=== PATIENT | female | born 1970 | race Caucasian/White ===

== ENCOUNTER 2016-09-10 14:39 | Emergency (ER) | payer OTHER ==
--- NOTE | 2016-09-10 15:36 | ED ORDER SUMMARY ---
..... Patient: KAITLIN SORENSEN OrderSheet [facility] VisitID: [id number] [address] [place] [address] 45y, F Registration Date/Time: 09/10/2016 ORDER SHEET Weight: 83.9 kg (stated) Allergies: Vicodin, Percocet GENERAL ORDERS: Culture, Strep Screen Urgent (15:08 09/10/2016 Luis Lopez.A.-C) (Ack 15:09 Trina) (15:13 LSullivan R.N.) MEDICATION ORDERS: Amoxicillin PO 500 mg (NOW) (15:34 09/10/2016 Luis Lopez.A.-C) (15:48 LSullivan R.N.) IV FLUIDS: ORDER SHEET NOTES: [Electronically signed by Marilou Arevalo P.A.-C (15:53 09/10/2016)] [Electronically signed by Sandra Grove R.N. (18:36 09/10/2016)] [Electronically locked/signed by Sandra Grove R.N. (18:36 09/10/2016)]
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
--- NOTE | 2016-09-10 15:36 | ED CLINICAL REPORT ---
Clinical Report - Physicians/Mid Levels [facility] [address] [place] [address] 09/10/2016 14:42 [id number] Time Seen: 15:09 Sep 10 2016. Arrived- By private vehicle. HISTORY OF PRESENT ILLNESS Chief Complaint: SORE THROAT. This started just prior to arrival and is still present. Pain described as mild. The patient has had a sore throat, jaw pain, facial pain and nasal congestion. No toothache or swollen face. (Patient reports cough, congestion facial pain over the last 3 days worsening, she has had chills. No sick contacts. No trauma. No headache. Does not have a thermometer at home. No hemoptysis. Denies any neck pain.). REVIEW OF SYSTEMS The patient has had fever. No cough, difficulty breathing, nausea, diarrhea or skin rash. No enlarged lymph nodes. All systems otherwise negative, except as recorded above. SOCIAL HISTORY Smoker- current status unknown. Alcohol use. No drug use. ADDITIONAL NOTES The nursing notes have been reviewed. PHYSICAL EXAM Vital Signs: 09/10/2016 14:52 BP: 109/54. HR: 99. RR: 18. O2 saturation: 98%. Temp: 98.6 F. Pain level now: 5/10. Appearance: Alert. Eyes: Conjunctivae and eyelids normal. ENT: Ears normal. Purulent nasal discharge present. Nose normal. Pharyngeal erythema. Lips normal. No trismus present. No mouth ulcerations or peritonsillar mass. (sinus tenderness). Neck: Trachea midline. No adenopathy. Thyroid normal. No thyromegaly or meningeal signs. CVS: Normal heart rate and rhythm. Heart sounds normal. Respiratory: No respiratory distress. Breath sounds normal. Abdomen: No organomegaly. Skin: No rash. LABS, X-RAYS, AND EKG Laboratory Tests: Culture, Strep Screen: (NAYAN: 09/10/2016 15:11) ( MsgRcvd 09/10/2016 15:34) Final results Test Result Flag Units (Reference) RAPID STREP SCREEN - THROAT CALLED TO: Marti MCGOWAN -- DATE: 09/10/16 POSITIVE SCREEN: RAPID STREP SCREEN: POSITIVE FOR GROUP A STREP . PROGRESS AND PROCEDURES Course of Care: Patient here there with a positive rapid strep. Patient in addition has sinus tenderness, we'll treat with amoxicillin. Patient stable. NO meningeal signs. 09/10/2016 14:52 BP: 109/54. HR: 99. RR: 18. O2 saturation: 98%. Temp: 98.6 F. Pain level now: 5/10. Patient is stable. Physical exam findings are improved. Symptoms better. Patient/family counseled. Differential Diagnosis: I considered viral pharyngitis, bacterial pharyngitis, palatine tonsillitis, thrush, aphthous stomatitis, allergic stomatitis, erythema multiforme, mononucleosis, sinusitis, foreign body and cardiac etiology as a possible cause of sore throat in this patient. This is a partial list of diagnoses considered. Disposition: Discharged. Condition: good. CLINICAL IMPRESSION Acute streptococcal pharyngitis INSTRUCTIONS Do not work for two days. Drink plenty of fluids. Prescription Medications: Tylenol with Codeine Tylenol #3 (30 mg / 300 mg) : take 1 tablet orally every 6 hours as needed for pain. No refill. Substitution is permissible. Amoxicillin 500 mg tablets: take 1 orally every 8 hours for 10 days. No refills. Ibuprofen 800 mg tablets: take 1 tablet orally every 8 hours for 3 days. Dispense ten (10). No refill. nicoderm patch: (21 mg/day) for 2 weeks. Follow-up: Follow up with your doctor in three days. Understanding of the discharge instructions verbalized by patient. (Electronically signed by Marilou Arevalo P.A.-C 09/10/2016 15:53)
--- NOTE | 2016-09-10 15:36 | ED ORDER SUMMARY ---
..... Patient: KAITLIN SORENSEN OrderSheet [facility] VisitID: [id number] [address] [place] [address] 45y, F Registration Date/Time: 09/10/2016 ORDER SHEET Weight: 83.9 kg (stated) Allergies: Vicodin, Percocet GENERAL ORDERS: Culture, Strep Screen Urgent (15:08 09/10/2016 Luis Lopez.A.-C) (Ack 15:09 Trina) (15:13 LSullivan R.N.) MEDICATION ORDERS: Amoxicillin PO 500 mg (NOW) (15:34 09/10/2016 Luis Lopez.A.-C) (15:48 LSullivan R.N.) IV FLUIDS: ORDER SHEET NOTES: [Electronically signed by Marilou Arevalo P.A.-C (15:53 09/10/2016)] [Electronically signed by Sandra Grove R.N. (18:36 09/10/2016)] [Electronically locked/signed by Sanrda Grove R.N. (18:36 09/10/2016)]
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
--- NOTE | 2016-09-10 18:36 | ED MED RECONCILIATION SUMMARY ---
Patient: KAITLIN SORENSEN Medication Reconciliation Report [facility] VisitID: [id number] [address] [place] [address] 45y, F Registration Date/Time: 09/10/2016 Weight: 83.9 kg Height/Length: 60 in. BMI: 36.1 ALLERGIES: Percocet, Vicodin The patient's Home Medications are listed below: THE FOLLOWING MEDICATIONS NEED TO BE RECONCILED: Ibuprofen The source(s) of the original Home Medication information: Not obtained. The following Medications were given to the patient in the Emergency Department: Amoxicillin [PO] PO 500 mg, administered: 09/10/2016 3:48:00 PM The following Medications were prescribed to the patient: Tylenol with Codeine Tylenol #3 (30 mg / 300 mg) : take 1 tablet orally every 6 hours as needed for pain. No refill. Substitution is permissible. -- Marilou Arevalo P.A.-Oscar Amoxicillin 500 mg tablets: take 1 orally every 8 hours for 10 days. No refills. -- Marilou Arevalo P.A.-Oscar nicoderm patch: (21 mg/day) for 2 weeks. -- Marilou Arevalo P.A.-Oscar Ibuprofen 800 mg tablets: take 1 tablet orally every 8 hours for 3 days. Dispense ten (10). No refill. -- Marilou Arevalo P.A.-C
--- NOTE | 2016-09-10 18:36 | ED MAR SUMMARY ---
..... Medication Administration Record [facility] [address] [place] [address] Patient: KAITLIN SORENSEN Visit ID: [id number] 45y, F Weight: 83.9 kg Height/Length: 60 in BMI: 36.1 ALLERGIES: Percocet, Vicodin Given 15:48 09/10/2016 Sandra Grove RBalwinderNBalwinder Medication Administered: AMOXICILLIN [PO], Dose: 500 mg PO. Medication Ordered: Amoxicillin PO 500 mg (NOW).
--- NOTE | 2016-09-10 18:36 | ED DISCHARGE INSTRUCTIONS ---
Patient: KAITLIN SORENSEN General Instructions [facility] VisitID: [id number] [place] [address] 45y, F Registration Date/Time: 09/10/2016 Acute streptococcal pharyngitis INSTRUCTIONS Do not work for two days. Drink plenty of fluids. Prescription Medications: Tylenol with Codeine Tylenol #3 (30 mg / 300 mg) : take 1 tablet orally every 6 hours as needed for pain. No refill. Substitution is permissible. Amoxicillin 500 mg tablets: take 1 orally every 8 hours for 10 days. No refills. Ibuprofen 800 mg tablets: take 1 tablet orally every 8 hours for 3 days. Dispense ten (10). No refill. nicoderm patch: (21 mg/day) for 2 weeks. Follow-up: Follow up with your doctor in three days. Understanding of the discharge instructions verbalized by patient. ADDITIONAL INFORMATION Pharyngitis: Strep [Confirmed] Your test for strep throat was positive. Strep throat is a contagious illness. It is spread by coughing, kissing or by touching others after touching your mouth or nose. Symptoms include throat pain which is worse with swallowing, aching all over, headache and fever. You will be treated with an antibiotic which should make you start to feel better within 1-2 days. Home Care: Rest at home and drink plenty of fluids to avoid dehydration. No school or work for the first two days on antibiotics. You will not be contagious after this time and if you are feeling better, you can return to school or work. Take your antibiotics for a full 10 days, even if you feel better after the first few days of treatment. This is very important to prevent heart or kidney disease that can result as a complication of untreated strep throat infection. Children: Use acetaminophen (Tylenol) for fever, fussiness or discomfort. In infants over six months of age, you may use ibuprofen (Children's Motrin) instead of Tylenol. [NOTE: If your child has chronic liver or kidney disease or ever had a stomach ulcer or GI bleeding, talk with your doctor before using these medicines.] (Aspirin should never be used in anyone under 18 years of age who is ill with a fever. It may cause severe liver damage.)Adults: You may use acetaminophen (Tylenol) or ibuprofen (Motrin, Advil) to control pain or fever, unless another medicine was prescribed for this. [NOTE: If you have chronic liver or kidney disease or ever had a stomach ulcer or GI bleeding, talk with your doctor before using these medicines.] Throat lozenges or sprays (Chloraseptic and others) will reduce pain. Gargling with warm salt water will also reduce throat pain. Dissolve 1/2 teaspoon of salt in 1 glass of warm water. This is especially useful just before meals. Follow Up with your doctor or as directed by our staff if you are not improving over the next week. Get Prompt Medical Attention if any of the following occur: Fever of 100.4F (38C) oral or higher, not better with fever medication New or worsening ear pain, sinus pain or headache Painful lumps in the back of your neck Unable to swallow liquids or open your mouth wide due to throat pain Trouble breathing or noisy breathing Muffled voice New rash Acetaminophen, Codeine Phosphate Oral tablet What is this medicine? ACETAMINOPHEN; CODEINE (a set a FELICIA dayron fen; KOE uday) is a pain reliever. It is used to treat mild to moderate pain. How should I use this medicine? Take this medicine by mouth with a full glass of water. Follow the directions on the prescription label. If the medicine upsets your stomach, take the medicine with food or milk. Do not take more medicine than you are told to take. Talk to your steam and gas turbine assembler regarding the use of this medicine in children. Special care may be needed. What side effects may I notice from receiving this medicine? Side effects that you should report to your doctor or health health care facilities inspector as soon as possible: allergic reactions like skin rash, itching or hives, swelling of the face, lips, or tongue breathing difficulties, wheezing confusion light headedness or fainting spells severe stomach pain yellowing of the skin or the whites of the eyes Side effects that usually do not require medical attention (report to your doctor or health health care facilities inspector if they continue or are bothersome): dizziness drowsiness nausea, vomiting What may interact with this medicine? alcohol antihistamines benztropine drugs for bladder problems like solifenacin, trospium, oxybutynin, tolterodine, hycosamine, and methscopolamine drugs for breathing problems like ipratropium and tiotropium drugs for certain stomach or intestine problems like propantheline, homatropine methylbromide, glycopyrrolate, atropine, belladonna, and dicyclomine medicines for depression, anxiety, or psychotic disturbances medicines for sleep muscle relaxants naltrexone narcotic medicines (opiates) for pain phenothiazines like perphenazine, thioridazine, chlorpromazine, mesoridazine, fluphenazine, prochlorperazine, promazine, trifluoperazine scopolamine tramadol trihexyphenidyl What if I miss a dose? If you miss a dose, take it as soon as you can. If it is almost time for your next dose, take only that dose. Do not take double or extra doses. Where should I keep my medicine? Keep out of the reach of children. This medicine can be abused. Keep your medicine in a safe place to protect it from theft. Do not share this medicine with anyone. Selling or giving away this medicine is dangerous and against the law. Store at room temperature between 15 and 30 degrees C (59 and 86 degrees F). Protect from light. Keep container tightly closed. Throw away any unused medicine after the expiration date. Discard unused medicine and used packaging carefully. Pets and children can be harmed if they find used or lost packages. What should I tell my health care provider before I take this medicine? They need to know if you have any of these conditions: brain tumor Crohn's disease, inflammatory bowel disease, or ulcerative colitis drink more than 3 alcohol containing drinks per day drug abuse or addiction head injury heart or circulation problems kidney disease or problems going to the bathroom liver disease lung disease, asthma, or breathing problems an unusual or allergic reaction to acetaminophen, codeine, salicylates, other opioid analgesics, other medicines, foods, dyes, or preservatives or trying to get breast-feeding What should I watch for while using this medicine? Tell your doctor or health health care facilities inspector if your pain does not go away, if it gets worse, or if you have new or a different type of pain. You may develop tolerance to the medication. Tolerance means that you will need a higher dose of the medication for pain relief. Tolerance is normal and is expected if you take the medicine for a long time. Do not suddenly stop taking your medicine because you may develop a severe reaction. Your body becomes used to the medicine. This does NOT mean you are addicted. Addiction is a behavior related to getting and using a drug for a non medical reason. If you have pain, you have a medical reason to take pain medicine. Your doctor will tell you how much medicine to take. If your doctor wants you to stop the medicine, the dose will be slowly lowered over time to avoid any side effects. You may get drowsy or dizzy. Do not drive, use machinery, or do anything that needs mental alertness until you know how this medicine affects you. Do not stand or sit up quickly, especially if you are an older patient. This reduces the risk of dizzy or fainting spells. Alcohol may interfere with the effect of this medicine. Avoid alcoholic drinks. There are different types of narcotic medicines (opiates) for pain. If you take more than one type at the same time, you may have more side effects. Give your health care provider a list of all medicines you use. Your doctor will tell you how much medicine to take. Do not take more medicine than directed. Call emergency for help if you have problems breathing. The medicine will cause constipation. Try to have a bowel movement at least every 2 to 3 days. If you do not have a bowel movement for 3 days, call your doctor or health health care facilities inspector. Do not take Tylenol (acetaminophen) or medicines that have acetaminophen with this medicine. Too much acetaminophen can be very dangerous. Many nonprescription medicines contain acetaminophen. Always read the labels carefully to avoid taking more acetaminophen. Immediately call your physician or get emergency help if you are breast-feeding and your baby is sleepier than usual, is limp, or has difficulty or breathing. Amoxicillin Trihydrate Oral tablet What is this medicine? AMOXICILLIN (a mox i DENISSE in) is a penicillin antibiotic. It is used to treat certain kinds of bacterial infections. It will not work for colds, flu, or other viral infections. How should I use this medicine? Take this medicine by mouth with a glass of water. Follow the directions on your prescription label. You may take this medicine with food or on an empty stomach. Take your medicine at regular intervals. Do not take your medicine more often than directed. Take all of your medicine as directed even if you think your are better. Do not skip doses or stop your medicine early. Talk to your steam and gas turbine assembler regarding the use of this medicine in children. While this drug may be prescribed for selected conditions, precautions do apply. What side effects may I notice from receiving this medicine? Side effects that you should report to your doctor or health health care facilities inspector as soon as possible: allergic reactions like skin rash, itching or hives, swelling of the face, lips, or tongue breathing problems dark urine redness, blistering, peeling or loosening of the skin, including inside the mouth seizures severe or watery diarrhea trouble passing urine or change in the amount of urine unusual bleeding or bruising unusually weak or tired yellowing of the eyes or skin Side effects that usually do not require medical attention (report to your doctor or health health care facilities inspector if they continue or are bothersome): dizziness headache stomach upset trouble sleeping What may interact with this medicine? amiloride control pills chloramphenicol macrolides probenecid sulfonamides tetracyclines What if I miss a dose? If you miss a dose, take it as soon as you can. If it is almost time for your next dose, take only that dose. Do not take double or extra doses. Where should I keep my medicine? Keep out of the reach of children. Store between 68 and 77 degrees F (20 and 25 degrees C). Keep bottle closed tightly. Throw away any unused medicine after the expiration date. What should I tell my health care provider before I take this medicine? They need to know if you have any of these conditions: asthma kidney disease an unusual or allergic reaction to amoxicillin, other penicillins, cephalosporin antibiotics, other medicines, foods, dyes, or preservatives or trying to get breast-feeding What should I watch for while using this medicine? Tell your doctor or health health care facilities inspector if your symptoms do not improve in 2 or 3 days. Take all of the doses of your medicine as directed. Do not skip doses or stop your medicine early. If you are diabetic, you may get a false positive result for sugar in your urine with certain brands of urine tests. Check with your doctor. Do not treat diarrhea with [id number] products. Contact your doctor if you have diarrhea that lasts more than 2 days or if the diarrhea is severe and watery. Ibuprofen Oral tablet What is this medicine? IBUPROFEN (eye BYOO proe fen) is a non-steroidal anti-inflammatory drug (NSAID). It is used for dental pain, fever, headaches or migraines, osteoarthritis, rheumatoid arthritis, or painful monthly periods. It can also relieve minor aches and pains caused by a cold, flu, or sore throat. How should I use this medicine? Take this medicine by mouth with a glass of water. Follow the directions on the prescription label. Take this medicine with food if your stomach gets upset. Try to not lie down for at least 10 minutes after you take the medicine. Take your medicine at regular intervals. Do not take your medicine more often than directed. A special MedGuide will be given to you by the pharmacist with each prescription and refill. Be sure to read this information carefully each time. Talk to your steam and gas turbine assembler regarding the use of this medicine in children. Special care may be needed. What side effects may I notice from receiving this medicine? Side effects that you should report to your doctor or health health care facilities inspector as soon as possible: allergic reactions like skin rash, itching or hives, swelling of the face, lips, or tongue black or bloody stools, blood in the urine or in vomit breathing problems changes in vision chest pain general ill feeling or flu-like symptoms nausea or vomiting redness, blistering, peeling or loosening of the skin, including inside the mouth slurred speech or weakness on one side of the body stomach pain unexplained weight gain or swelling unusually weak or tired yellowing of eyes or skin Side effects that usually do not require medical attention (report to your doctor or health health care facilities inspector if they continue or are bothersome): constipation or diarrhea dizziness gas or heartburn stomach upset What may interact with this medicine? Do not take this medicine with any of the following medications: cidofovir ketorolac methotrexate pemetrexed This medicine may also interact with the following medications: alcohol aspirin diuretics lithium other drugs for inflammation like prednisone warfarin What if I miss a dose? If you miss a dose, take it as soon as you can. If it is almost time for your next dose, take only that dose. Do not take double or extra doses. Where should I keep my medicine? Keep out of the reach of children. Store at room temperature between 15 and 30 degrees C (59 and 86 degrees F). Keep container tightly closed. Throw away any unused medicine after the expiration date. What should I tell my health care provider before I take this medicine? They need to know if you have any of these conditions: asthma cigarette smoker drink more than 3 alcohol containing drinks a day heart disease or circulation problems such as heart failure or leg edema (fluid retention) high blood pressure kidney disease liver disease stomach bleeding or ulcers an unusual or allergic reaction to ibuprofen, aspirin, other NSAIDS, other medicines, foods, dyes, or preservatives or trying to get breast-feeding What should I watch for while using this medicine? Tell your doctor or healthcare professional if your symptoms do not start to get better or if they get worse. This medicine does not prevent heart attack or stroke. In fact, this medicine may increase the chance of a heart attack or stroke. The chance may increase with longer use of this medicine and in people who have heart disease. If you take aspirin to prevent heart attack or stroke, talk with your doctor or health health care facilities inspector. Do not take other medicines that contain aspirin, ibuprofen, or naproxen with this medicine. Side effects such as stomach upset, nausea, or ulcers may be more likely to occur. Many medicines available without a prescription should not be taken with this medicine. This medicine can cause ulcers and bleeding in the stomach and intestines at any time during treatment. Ulcers and bleeding can happen without warning symptoms and can cause . To reduce your risk, do not smoke cigarettes or drink alcohol while you are taking this medicine. You may get drowsy or dizzy. Do not drive, use machinery, or do anything that needs mental alertness until you know how this medicine affects you. Do not stand or sit up quickly, especially if you are an older patient. This reduces the risk of dizzy or fainting spells. This medicine can cause you to bleed more easily. Try to avoid damage to your teeth and gums when you brush or floss your teeth. You have been given the following additional information: Pharyngitis, Strep (Confirmed) Acetaminophen, Codeine Phosphate Oral tablet Amoxicillin Trihydrate Oral tablet Ibuprofen Oral tablet Do not work for two days. (Electronically signed by Marilou Arevalo P.A.-C 09/10/2016 15:53)
--- NOTE | 2016-09-10 18:36 | ED MAR SUMMARY ---
..... Medication Administration Record [facility] [address] [place] [place] [address] Patient: KAITLIN SORENSEN Visit ID: [id number] 45y, F Weight: 83.9 kg Height/Length: 60 in BMI: 36.1 ALLERGIES: Percocet, Vicodin Given 15:48 09/10/2016 Sandra [place] RBalwinderNBalwinder Medication Administered: AMOXICILLIN [PO], Dose: 500 mg PO. Medication Ordered: Amoxicillin PO 500 mg (NOW).
--- NOTE | 2016-09-10 18:36 | ED MED RECONCILIATION SUMMARY ---
Patient: KAITLIN SORENSEN Medication Reconciliation Report [facility] VisitID: [id number] [address] [place] [address] 45y, F Registration Date/Time: 09/10/2016 Weight: 83.9 kg Height/Length: 60 in. BMI: 36.1 ALLERGIES: Percocet, Vicodin The patient's Home Medications are listed below: THE FOLLOWING MEDICATIONS NEED TO BE RECONCILED: Ibuprofen The source(s) of the original Home Medication information: Not obtained. The following Medications were given to the patient in the Emergency Department: Amoxicillin [PO] PO 500 mg, administered: 09/10/2016 3:48:00 PM The following Medications were prescribed to the patient: Tylenol with Codeine Tylenol #3 (30 mg / 300 mg) : take 1 tablet orally every 6 hours as needed for pain. No refill. Substitution is permissible. -- Marilou Arevalo P.A.-Oscar Amoxicillin 500 mg tablets: take 1 orally every 8 hours for 10 days. No refills. -- Marilou Arevalo P.A.-Oscar nicoderm patch: (21 mg/day) for 2 weeks. -- Marilou Arevalo P.A.-Oscar Ibuprofen 800 mg tablets: take 1 tablet orally every 8 hours for 3 days. Dispense ten (10). No refill. -- Marilou Arevalo P.A.-C
== END 2016-09-10 15:46 | disposition home or self-care (01) ==
LOC: ED SRH 14:39
DX: J02.0 Streptococcal pharyngitis (principal); B95.0 Streptococcus, group A, as the cause of diseases classified elsewhere
CPT/HCPCS: 90154